=== PATIENT | female | born 1995 | race Caucasian/White ===

== ENCOUNTER 2016-11-28 05:54 | Inpatient (IN) | payer BC ==
[2016-11-28] MEDS ORDERED: Sodium Chloride 0.9% 10 ML Syringe FLUSH PRN (08:52)
[2016-11-28] MEDS ORDERED: Nalbuphine 10 MG/1 ML Vial IVPUSH PRN (08:52)
[2016-11-28] MEDS ORDERED: Lidocaine 1% 50 ML MDV INJECT PRN (08:52)
[2016-11-28] MEDS ORDERED: Butorphanol 1 MG/ML SDV IVPUSH PRN (08:52)
[2016-11-28] MEDS ORDERED: Misoprostol 200 MCG Tab PO PRN (08:52)
[2016-11-28] MEDS ORDERED: Water For Irrigation,Sterile 1,000 ML Container IRR PRN (08:52)
[2016-11-28] MEDS ORDERED: Sodium Chloride 0.9% 2.5 ML Syringe FLUSH PRN (08:52)
[2016-11-28] MEDS ORDERED: Carboprost Tromethamine 250 MCG/1 ML Amp IM PRN (08:52)
[2016-11-28] MEDS ORDERED: Methylergonovine 0.2 MG/1 ML Amp IM PRN (08:52)
[2016-11-28] MEDS ORDERED: Oxytocin/Lactated Ringers 30 UNIT/500 ML BAG IV SCH (09:00)
[2016-11-28] MEDS: Lactated Ringers 1,000 ML IV SCH ×3 (11:23→16:12)
[2016-11-28] MEDS ORDERED: Ropivacaine HCl/PF 100 ML ONE (11:50)
[2016-11-28] MEDS ORDERED: fentaNYL 100 MCG/2 ML SDV ONE (11:50)
[2016-11-28] MEDS ORDERED: ePHEDrine 50 MG/ML SDV ONE (11:50)
[2016-11-28] MEDS ORDERED: Ropivacaine 0.2% 2 MG/ML 20 ML SDV ONE (11:50)
--- NOTE | 2016-11-28 12:39 | PCM.PREANE ---
Preanesthetic Assessment - Procedure Proposed Procedure: labor epidural - Anesthesia/Transfusion/Family Hx Anesthesia History: Prior Anesthesia Without Reaction (colonoscopy) Family History of Anesthesia Reaction: No Transfusion History: No Prior Transfusion(s) - Review of Systems General: No Symptoms Pulmonary: No Symptoms Cardiovascular: No Symptoms Gastrointestinal: No symptoms Neurological: Other (history of rt side sciatic pain) Other: Reports: None - Physical Assessment NPO Status Date: 11/28/16 Height: 1.71 m Weight: 69.853 kg ASA Class: 2 Mental Status: Alert & Oriented x3 Airway Class: Mallampati = 1 Dentition: Reports: Normal Dentition Thyro-Mental Finger Breadths: 3 Mouth Opening Finger Breadths: 3 ROM/Head Extension: Full Lungs: Clear to auscultation Cardiovascular: Regular Rate - Lab Values: Laboratory Last Values WBC 8.86 K/uL (4.0-11.0) 11/28/16 09:08 RBC 4.55 M/uL (4.30-5.90) 11/28/16 09:08 Hgb 13.5 g/dL (12.0-16.0) 11/28/16 09:08 Hct 39.6 % (36.0-46.0) 11/28/16 09:08 MCV 87.0 fL (80.0-98.0) 11/28/16 09:08 MCH 29.7 pg (27.0-32.0) 11/28/16 09:08 MCHC 34.1 g/dL (31.0-37.0) 11/28/16 09:08 RDW Std Deviation 43.0 fl (28.0-62.0) 11/28/16 09:08 RDW Coeff of Lynn 14 % (11.0-15.0) 11/28/16 09:08 Plt Count 160 K/uL (150-400) 11/28/16 09:08 MPV 10.90 fL (7.40-12.00) 11/28/16 09:08 Nucleated RBC % 0.0 /100WBC 11/28/16 09:08 Nucleated RBCs # 0 K/uL 11/28/16 09:08 Blood Type O POSITIVE 11/28/16 09:08 Antibody Screen NEGATIVE 11/28/16 09:08 - Allergies Allergies/Adverse Reactions: Allergies Allergy/AdvReac Type Severity Reaction Status Date / Time No Known Allergies Allergy Verified 11/28/16 06:22 - Blood Blood Available: Yes Product(s) Available: PRBC - Anesthesia Plan Pre-Op Medication Ordered: Antacids - Acknowledgements Anesthesia Type Planned: Epidural Pt an Appropriate Candidate for the Planned Anesthesia: Yes Alternatives and Risks of Anesthesia Discussed w Pt/Guardian: Yes Pt/Guardian Understands and Agrees with Anesthesia Plan: Yes PreAnesthesia Questionnaire - Past Health History Medical/Surgical History: Denies Medical/Surgical History Gastrointestinal History: Reports: None [employer] History: Reports: - Infectious Disease History Infectious Disease History: Reports: Chicken pox, Other (see below) Other Infectious Disease History: Pneumonia - Past Surgical History Head Surgeries/Procedures: Reports: None GI Surgical History: Reports: Colonoscopy - CURRENT (IN HOUSE) MEDS Current Meds: Current Medications Butorphanol Tartrate (Stadol) 1 mg IVPUSH Q1H PRN PRN Reason: Pain Carboprost Tromethamine (Hemabate Ds) 250 mcg IM ASDIRECTED PRN PRN Reason: Post Hemorrhage Lactated Ringer's (Ringers, Lactated) 1,000 mls @ 150 mls/hr IV ASDIRECTED GEOFFREY Last Admin: 11/28/16 12:21 Dose: 500 mls/hr Lidocaine HCl (Xylocaine 1%) 50 ml INJECT .ONCE PRN PRN Reason: Laceration repair Methylergonovine Maleate (Methergine) 0.2 mg IM ASDIRECTED PRN PRN Reason: Post Hemorrhage Misoprostol (Cytotec) 200 mcg PO .ONCE PRN PRN Reason: Post Hemorrhage Sodium Chloride (Saline Flush) 10 ml FLUSH ASDIRECTED PRN PRN Reason: Keep Vein Open Sodium Chloride (Saline Flush) 2.5 ml FLUSH ASDIRECTED PRN PRN Reason: Keep Vein Open Sterile Water (Sterile Water For Irrigation) 1,000 ml IRR ASDIRECTED PRN PRN Reason: delivery Discontinued Medications Ephedrine Sulfate (Ephedrine Sulfate) Confirm Administered Dose 50 mg .ROUTE .STK-MED ONE Stop: 11/28/16 11:51 Fentanyl (Sublimaze) Confirm Administered Dose 300 mcg .ROUTE .STK-MED ONE Stop: 11/28/16 11:51 Oxytocin/Lactated Ringer's (Pitocin In Lr 30 Units/500 Ml) 30 unit in 500 mls @ 999 mls/hr IV TITRATE GEOFFREY; 999 MUNITS/MIN PRN Reason: Protocol Stop: 11/28/16 09:31 Ropivacaine (Naropin 0.2%) Confirm Administered Dose 100 mls @ as directed .ROUTE .STK-MED ONE Stop: 11/28/16 11:51 Nalbuphine HCl (Nubain) 10 mg IVPUSH Q1H PRN PRN Reason: Pain (severe 7-10) Stop: 11/28/16 10:53 Ropivacaine (Naropin 0.2%) Confirm Administered Dose 20 ml .ROUTE .STK-MED ONE Stop: 11/28/16 11:51 Preanesthetic Assessment - PHYSICAL ASSESSMENT Height: 1.71 m Weight: 69.853 kg - LAB Values: Laboratory Last Values WBC 8.86 K/uL (4.0-11.0) 11/28/16 09:08 RBC 4.55 M/uL (4.30-5.90) 11/28/16 09:08 Hgb 13.5 g/dL (12.0-16.0) 11/28/16 09:08 Hct 39.6 % (36.0-46.0) 11/28/16 09:08 MCV 87.0 fL (80.0-98.0) 11/28/16 09:08 MCH 29.7 pg (27.0-32.0) 11/28/16 09:08 MCHC 34.1 g/dL (31.0-37.0) 11/28/16 09:08 RDW Std Deviation 43.0 fl (28.0-62.0) 11/28/16 09:08 RDW Coeff of [place] 14 % (11.0-15.0) 11/28/16 09:08 Plt Count 160 K/uL (150-400) 11/28/16 09:08 MPV 10.90 fL (7.40-12.00) 11/28/16 09:08 Nucleated RBC % 0.0 /100WBC 11/28/16 09:08 Nucleated RBCs # 0 K/uL 11/28/16 09:08 Blood Type O POSITIVE 11/28/16 09:08 Antibody Screen NEGATIVE 11/28/16 09:08 - ALLERGIES Allergies/Adverse Reactions: Allergies Allergy/AdvReac Type Severity Reaction Status Date / Time No Known Allergies Allergy Verified 11/28/16 06:22
--- NOTE | 2016-11-28 12:51 | PCM.PRNOTE ---
- Free Text/Narrative Note: asked to see patient for increasing labor pain. patient cervix dilated to 8 cm. explained procedure including risks and expectations of nerve pain, nerve damage , bleeding, infection and unsuccessful or one sided epidural. patient agrees to proceed. sitting up, sterile betadine prep x 3 with sterile drape. 1% lidocaine sq at L3. #17 g touhy advanced. unable to advance more than a few millimeters without complaints of right or left sided pain. L4 local SQ #17 g touhy advanced without incident pcea explainedto aprroximately 7 cm. no heme, no paresthesia. catheter advanced easily taped 10 cm at skin. test dose 3 ml of 1.5 % lidocaine with epinephrine 1:200,000. negative reaction. bolus dose 5 ml 0.2% ropivicaine and 100 mcg fentanyl given. pain level 1/10 from 10. level t8 on left and t12 on right. pt tipped to right side. pcea drip started at 10 ml/hr with 4ml /20 minutes as a bolus option. fentany additive at 2 mcg /ml into ropivicaine drip. pcea explained to patient.
[2016-11-28] MEDS ORDERED: Citric Acid/Sodium Citrate Solution 30 ML Cup PO ONE (16:00)
[2016-11-28] MEDS ORDERED: Oxytocin/Lactated Ringers 30 UNIT/500 ML BAG ONE (17:50)
[2016-11-28] MEDS ORDERED: Acetaminophen 500 MG Tab PO PRN (18:51)
[2016-11-28] MEDS ORDERED: Witch Hazel Medicated Pads 40/Jar TOP PRN (18:51)
[2016-11-28] MEDS ORDERED: oxyCODONE 5 MG Tab PO PRN (18:51)
[2016-11-28] MEDS ORDERED: Bisacodyl 10 MG Supp RECTAL PRN (18:51)
[2016-11-28] MEDS ORDERED: Benzocaine/Menthol 20%-0.5% Spray 78 GM Cannister TOP PRN (18:51)
[2016-11-28] MEDS ORDERED: Lanolin 100% Cream 7 GM Tube TOP PRN (18:51)
[2016-11-28] MEDS ORDERED: Ibuprofen 400 MG Tab PO PRN (18:51)
[2016-11-28] MEDS: Ibuprofen 800 MG Tab PO PRN (20:02)
[2016-11-28] MEDS: Acetaminophen 500 MG Tab PO PRN (21:38)
--- NOTE | 2016-11-28 23:43 | OR ---
SURGEON: Sarai Pérez MD DATE OF PROCEDURE: 11/28/2016 PREOPERATIVE DIAGNOSES: 1. Term at 40 weeks 3 days. 2. Spontaneous labor. POSTOPERATIVE DIAGNOSES: 1. Term at 40 weeks 3 days. 2. Spontaneous labor. 3. Delivered. PROCEDURE: 1. Spontaneous vaginal delivery. 2. Repair of partial third-degree laceration (Type 3a). ANESTHESIA: Epidural. ESTIMATED BLOOD LOSS: 250 mL. COMPLICATIONS: None. DISPOSITION: Mother and baby stable in Labor and Delivery room, [facility]. FINDINGS: Male , weight 3860 g. score 8 and 9 at 1 and 5 minutes respectively. Nuchal cord x1. Grossly normal placenta with 3-vessel cord. Midline third-degree laceration involving less than 50% of the external sphincter. BRIEF HISTORY: The patient is a 21-year-old primi, who was admitted early hours of this morning at approximately 6:00 a.m. with history of regular contractions since 2:00 a.m. Denied vaginal bleeding, leakage of fluid and reported active fetus. care was uncomplicated. GBS negative. On admission, she was found to be 4 to 5 cm dilated, with a CAT 1 stripe, she was allowed to ambulate and she made progress to 6 cm 2 hours later. She continued to ambulate with intermittent monitoring.Artificial rupture of membranes was performed when she was 7 cm dilated, scanty amount of blood tinged fluid was noted, after which she requested and received epidural for pain management. She spontaneous progress to full dilatation and with increasing rectal pressure, she commenced active pushing. She pushed a little over 4 hours bringing the baby's head down to a +4 station and was set up for delivery in modified dorsal lithotomy position. The heart tracing was mainly category 1 throughout the first stage of labor and became a second stage strip, CAT 2 active second stage. DESCRIPTION OF PROCEDURE: She had a spontaneous vaginal delivery of a live male infant in direct occipital anterior position, clear amniotic fluid delivered, nuchal cord x1, which was easily reduced. Anterior and the posterior shoulders, and the rest of the baby were delivered without difficulty. The baby was vigorous and cried spontaneously at . The baby was delivered onto the maternal abdomen. The cord was double clamped after it had ceased pulsating and was cut by the father of the baby. With delivery of the , oxytocin infusion, titration was commenced for active management of third stage of labor. Cord blood and gas samples were obtained. The placenta was delivered by cord traction appeared to be complete and intact. Examination of the perineum revealed a third-degree laceration, type 3a involving less than 50% of the external sphincter. The edges of the external sphincter were then identified and repaired with end-to-end technique using 2-0 PDS suture. The rest of the laceration was then repaired with the routine technique using 2-0 Vicryl suture, nonlocking continuous stitches were used to approximate the vaginal wall and using the same suture, interrupted stitches were used to approximate the perineal muscles. Subcuticular stitches were used to repair the skin. Rectal exam post repair revealed intact sphincter with no stitches in the anus. Uterine massage was performed. The uterus was found to be well contracted below the umbilicus. The patient tolerated the procedure well. Sponge, needle, instrument, and needle counts were correct at the end of the delivery. ADUMVIV / MODL /[id number] MARK
[2016-11-29] MEDS: Ibuprofen 800 MG Tab PO PRN ×3 (04:52→19:50)
[2016-11-29] MEDS: Docusate Sodium 100 MG Cap PO PRN (09:20)
[2016-11-29] MEDS: Acetaminophen 500 MG Tab PO PRN (09:20)
--- NOTE | 2016-11-29 10:56 | PCM48HPAN ---
Post Anesthesia Note - EVALUATION WITHIN 48HRS OF ANESTHETIC Vital Signs in Normal Range: Yes Patient Participated in Evaluation: Yes Respiratory Function Stable: Yes Airway Patent: Yes Cardiovascular Function Stable: Yes Hydration Status Stable: Yes Pain Control Satisfactory: Yes Nausea and Vomiting Control Satisfactory: Yes Mental Status Recovered: Yes
[2016-11-29] MEDS ORDERED: Lidocaine 4% Top Soln 50 ML Bottle MUCMEM ONE (14:40)
[2016-11-29] MEDS ORDERED: Lidocaine 2% Jelly 30 ML Tube MUCMEM SCH (14:45)
--- NOTE | 2016-11-29 17:05 | PCM.PNPP ---
- General Info Date of Service: 11/29/16 Functional Status: Reports: pain controlled, tolerating diet, ambulating, urinating - Review of Systems General: Denies: Fever, Weakness, Fatigue, Malaise, Chills HEENT: Denies: headaches Pulmonary: Denies: shortness of breath, pleuritic chest pain, cough, sputum Cardiovascular: Denies: Chest Pain, Palpitations, Dyspnea on Exertion Gastrointestinal: Denies: Abdominal pain Genitourinary: Denies: dysuria, incontinence Psychiatric: Denies: confusion, depression, mood lability - General Info Date of Service: 11/29/16 - Patient Data Vital Signs - most recent: Last Vital Signs Temp 36.7 C 11/29/16 16:00 Pulse 85 11/29/16 16:00 Resp 14 11/29/16 16:00 BP 117/68 11/29/16 16:00 Pulse Ox 96 11/29/16 16:00 Weight - most recent: 154 lb Lab Results - last 24 hrs: Laboratory Results - last 24 hr 11/29/16 Range/Units 04:40 Hgb 11.6 L (12.0-16.0) g/dL Hct 34.1 L (36.0-46.0) % Med Orders - Current: Current Medications Acetaminophen (Tylenol Extra Strength) 500 mg PO Q4H PRN PRN Reason: Pain Acetaminophen (Tylenol Extra Strength) 1,000 mg PO Q4H PRN PRN Reason: Pain Last Admin: 11/29/16 09:20 Dose: 1,000 mg Benzocaine/Menthol (Dermoplast Pain Relief 20%-0.5% [place]) 78 gm TOP ASDIRECTED PRN PRN Reason: Perineal Comfort Measure Last Admin: 11/28/16 20:03 Dose: 78 gm Bisacodyl (Dulcolax) 10 mg RECTAL .ONCE PRN PRN Reason: Constipation Docusate Sodium (Colace) 100 mg PO BID PRN PRN Reason: Constipation Last Admin: 11/29/16 09:20 Dose: 100 mg Emollient Ointment (Lansinoh Hpa) 0 gm TOP ASDIRECTED PRN PRN Reason: Sore Nipples Ibuprofen (Motrin) 400 mg PO Q4H PRN PRN Reason: Pain Ibuprofen (Motrin) 800 mg PO Q6H PRN PRN Reason: Pain Last Admin: 11/29/16 13:47 Dose: 800 mg Lidocaine HCl (Xylocaine 2% Jelly) 30 ml MUCMEM ASDIRECTED GEOFFREY Last Admin: 11/29/16 14:48 Dose: 30 ml Oxycodone HCl (Oxycodone) 5 mg PO Q2H PRN PRN Reason: Pain Last Admin: 11/28/16 22:54 Dose: 5 mg Witch [place] (Tucks) 1 pad TOP ASDIRECTED PRN PRN Reason: comfort care Last Admin: 11/28/16 20:03 Dose: 1 pad Discontinued Medications Butorphanol Tartrate (Stadol) 1 mg IVPUSH Q1H PRN PRN Reason: Pain Carboprost Tromethamine (Hemabate Ds) 250 mcg IM ASDIRECTED PRN PRN Reason: Post Hemorrhage Citric Acid/Sodium Citrate (Bicitra Solution) 30 ml PO ONETIME ONE Stop: 11/28/16 16:01 Last Admin: 11/28/16 16:30 Dose: 30 ml Ephedrine Sulfate (Ephedrine Sulfate) Confirm Administered Dose 50 mg .ROUTE .STK-MED ONE Stop: 11/28/16 11:51 Fentanyl (Sublimaze) Confirm Administered Dose 300 mcg .ROUTE .STK-MED ONE Stop: 11/28/16 11:51 Lactated Ringer's (Ringers, Lactated) 1,000 mls @ 150 mls/hr IV ASDIRECTED GEOFFREY Last Admin: 11/28/16 16:12 Dose: 150 mls/hr Oxytocin/Lactated Ringer's (Pitocin In Lr 30 Units/500 Ml) 30 unit in 500 mls @ 999 mls/hr IV TITRATE GEOFFREY; 999 MUNITS/MIN PRN Reason: Protocol Stop: 11/28/16 09:31 Last Admin: 11/28/16 17:56 Dose: 999 munits/min, 999 mls/hr Ropivacaine (Naropin 0.2%) Confirm Administered Dose 100 mls @ as directed .ROUTE .STK-MED ONE Stop: 11/28/16 11:51 Oxytocin/Lactated Ringer's (Pitocin In Lr 30 Units/500 Ml) Confirm Administered Dose 30 unit in 500 mls @ as directed .ROUTE .STK-MED ONE Stop: 11/28/16 17:51 Lidocaine HCl (Xylocaine 1%) 50 ml INJECT .ONCE PRN PRN Reason: Laceration repair Lidocaine HCl (Xylocaine 4% Top Soln) 50 ml MUCMEM ONETIME ONE Stop: 11/29/16 14:41 Methylergonovine Maleate (Methergine) 0.2 mg IM ASDIRECTED PRN PRN Reason: Post Hemorrhage Misoprostol (Cytotec) 200 mcg PO .ONCE PRN PRN Reason: Post Hemorrhage Nalbuphine HCl (Nubain) 10 mg IVPUSH Q1H PRN PRN Reason: Pain (severe 7-10) Stop: 11/28/16 10:53 Ropivacaine (Naropin 0.2%) Confirm Administered Dose 20 ml .ROUTE .STK-MED ONE Stop: 11/28/16 11:51 Sodium Chloride (Saline Flush) 10 ml FLUSH ASDIRECTED PRN PRN Reason: Keep Vein Open Sodium Chloride (Saline Flush) 2.5 ml FLUSH ASDIRECTED PRN PRN Reason: Keep Vein Open Sterile Water (Sterile Water For Irrigation) 1,000 ml IRR ASDIRECTED PRN PRN Reason: delivery Last Admin: 11/28/16 17:56 Dose: 1,000 ml - Infant Interaction Disposition, : [place] in Room with Family Interaction: Holding Infant Feeding: Breastfed ; Nursed Well, Continues to Breastfeed Support Person: - Recovery Exam Fundal Tone: Firm Fundal Level: 1 Fingerbreadths Below Umbilicus Fundal Placement: Midline Lochia Amount: Small Lochia Color: Rubra/Red Perineum Description: Ecchymotic, Edematous Episiotomy/Laceration: Approximated Bladder Status: Nonpalpable Urinary Elimination: Voided - Exam General: alert, oriented Neck: supple Lungs: Clear to auscultation, Normal respiratory effort Cardiovascular: Regular Rate, Regular Rhythm Abdomen: bowel sounds present, soft, no tenderness, no distension Extremities: no edema, no calf tenderness Psy/Mental Status: alert, normal affect, normal mood - Problem List & Annotations (1) Vaginal delivery SNOMED Code(s): 098031662 Code(s): O80 - ENCOUNTER FOR FULL-TERM UNCOMPLICATED DELIVERY Status: Acute Current Visit: Yes (2) Third degree perineal laceration SNOMED Code(s): 63379107, 494439575 Code(s): O70.20 - THIRD DEGREE PERINEAL LACERATION DURING DELIVERY, UNSP Status: Acute Current Visit: Yes - Problem List Review Problem List Initiated/Reviewed/Updated: Yes - My Orders Last 24 Hours: My Active Orders 11/28/16 18:51 Patient Status [ADT] Routine May Shower [RC] ASDIRECTED Up ad Shira [RC] ASDIRECTED Vital Signs [RC] PER UNIT ROUTINE Acetaminophen [Tylenol Extra Strength] 1,000 mg PO Q4H PRN Acetaminophen [Tylenol Extra Strength] 500 mg PO Q4H PRN Benzocaine/Menthol [Dermoplast Pain Relief 20%-0.5% [place]] 78 gm TOP ASDIRECTED PRN Bisacodyl [Dulcolax] 10 mg RECTAL .ONCE PRN Docusate Sodium [Colace] 100 mg PO BID PRN Ibuprofen [Motrin] 400 mg PO Q4H PRN Ibuprofen [Motrin] 800 mg PO Q6H PRN Lanolin [Lansinoh HPA] See Dose Instructions TOP ASDIRECTED PRN [place] [Tucks] 1 pad TOP ASDIRECTED PRN oxyCODONE 5 mg PO Q2H PRN Assess Lochia [WOMSER] Per Unit Routine Assess Uterine Involution [WOMSER] Per Unit Routine Breast Pump [WOMSER] Per Unit Routine Nothing Per Rectum [WOMSER] Per Unit Routine Perineal Care [OM.PC] Per Unit Routine Peripheral IV Discontinue [OM.PC] Routine Resuscitation Status Routine 11/29/16 14:45 Lidocaine 2% [Xylocaine 2% Jelly] 30 ml MUCMEM ASDIRECTED 11/29/16 Breakfast Regular Diet [DIET] - Assessment Assessment:: PPD#1 s/p with 3 rd degree laceration, minimal lochia, perineum less swollen and pain well controlled, stable and afebrile - Plan Plan:: Continue current care. Aim for discharge tomorrow
[2016-11-30] MEDS: Ibuprofen 800 MG Tab PO PRN (06:18)
[2016-11-30] MEDS: Docusate Sodium 100 MG Cap PO PRN (06:21)
[2016-11-30 08:11] VITALS: BP 104/68
--- NOTE | 2016-11-30 10:17 | PCM.PNPP ---
- General Info Date of Service: 11/30/16 Functional Status: Reports: pain controlled, tolerating diet, ambulating, urinating - Review of Systems General: Denies: Fever, Weakness, Fatigue, Malaise, Chills HEENT: Denies: headaches Pulmonary: Denies: shortness of breath, pleuritic chest pain, cough Cardiovascular: Denies: Chest Pain, Palpitations, Dyspnea on Exertion Gastrointestinal: Denies: Abdominal pain Genitourinary: Reports: incontinence (At the end of voiding). Denies: dysuria, burning Psychiatric: Denies: depression, mood lability, anxiety - General Info Date of Service: 11/30/16 - Patient Data Vital Signs - most recent: Last Vital Signs Temp 37.1 C 11/30/16 08:00 Pulse 80 11/30/16 08:00 Resp 18 11/30/16 08:00 BP 104/68 11/30/16 08:00 Pulse Ox 97 11/30/16 05:35 Weight - most recent: 154 lb Med Orders - Current: Current Medications Acetaminophen (Tylenol Extra Strength) 500 mg PO Q4H PRN PRN Reason: Pain Acetaminophen (Tylenol Extra Strength) 1,000 mg PO Q4H PRN PRN Reason: Pain Last Admin: 11/29/16 09:20 Dose: 1,000 mg Benzocaine/Menthol (Dermoplast Pain Relief 20%-0.5% [place]) 78 gm TOP ASDIRECTED PRN PRN Reason: Perineal Comfort Measure Last Admin: 11/28/16 20:03 Dose: 78 gm Bisacodyl (Dulcolax) 10 mg RECTAL .ONCE PRN PRN Reason: Constipation Docusate Sodium (Colace) 100 mg PO BID PRN PRN Reason: Constipation Last Admin: 11/30/16 06:21 Dose: 100 mg Emollient Ointment (Lansinoh Hpa) 0 gm TOP ASDIRECTED PRN PRN Reason: Sore Nipples Ibuprofen (Motrin) 400 mg PO Q4H PRN PRN Reason: Pain Ibuprofen (Motrin) 800 mg PO Q6H PRN PRN Reason: Pain Last Admin: 11/30/16 06:18 Dose: 800 mg Lidocaine HCl (Xylocaine 2% Jelly) 30 ml MUCMEM ASDIRECTED GEOFFREY Last Admin: 11/29/16 14:48 Dose: 30 ml Oxycodone HCl (Oxycodone) 5 mg PO Q2H PRN PRN Reason: Pain Last Admin: 11/28/16 22:54 Dose: 5 mg [place] (Tucks) 1 pad TOP ASDIRECTED PRN PRN Reason: comfort care Last Admin: 11/28/16 20:03 Dose: 1 pad Discontinued Medications Butorphanol Tartrate (Stadol) 1 mg IVPUSH Q1H PRN PRN Reason: Pain Carboprost Tromethamine (Hemabate Ds) 250 mcg IM ASDIRECTED PRN PRN Reason: Post Hemorrhage Citric Acid/Sodium Citrate (Bicitra Solution) 30 ml PO ONETIME ONE Stop: 11/28/16 16:01 Last Admin: 11/28/16 16:30 Dose: 30 ml Ephedrine Sulfate (Ephedrine Sulfate) Confirm Administered Dose 50 mg .ROUTE .STK-MED ONE Stop: 11/28/16 11:51 Fentanyl (Sublimaze) Confirm Administered Dose 300 mcg .ROUTE .STK-MED ONE Stop: 11/28/16 11:51 Lactated Ringer's (Ringers, Lactated) 1,000 mls @ 150 mls/hr IV ASDIRECTED GEOFFREY Last Admin: 11/28/16 16:12 Dose: 150 mls/hr Oxytocin/Lactated Ringer's (Pitocin In Lr 30 Units/500 Ml) 30 unit in 500 mls @ 999 mls/hr IV TITRATE GEOFFREY; 999 MUNITS/MIN PRN Reason: Protocol Stop: 11/28/16 09:31 Last Admin: 11/28/16 17:56 Dose: 999 munits/min, 999 mls/hr Ropivacaine (Naropin 0.2%) Confirm Administered Dose 100 mls @ as directed .ROUTE .STK-MED ONE Stop: 11/28/16 11:51 Oxytocin/Lactated Ringer's (Pitocin In Lr 30 Units/500 Ml) Confirm Administered Dose 30 unit in 500 mls @ as directed .ROUTE .STK-MED ONE Stop: 11/28/16 17:51 Lidocaine HCl (Xylocaine 1%) 50 ml INJECT .ONCE PRN PRN Reason: Laceration repair Lidocaine HCl (Xylocaine 4% Top Soln) 50 ml MUCMEM ONETIME ONE Stop: 11/29/16 14:41 Methylergonovine Maleate (Methergine) 0.2 mg IM ASDIRECTED PRN PRN Reason: Post Hemorrhage Misoprostol (Cytotec) 200 mcg PO .ONCE PRN PRN Reason: Post Hemorrhage Nalbuphine HCl (Nubain) 10 mg IVPUSH Q1H PRN PRN Reason: Pain (severe 7-10) Stop: 11/28/16 10:53 Ropivacaine (Naropin 0.2%) Confirm Administered Dose 20 ml .ROUTE .K-MED ONE Stop: 11/28/16 11:51 Sodium Chloride (Saline Flush) 10 ml FLUSH ASDIRECTED PRN PRN Reason: Keep Vein Open Sodium Chloride (Saline Flush) 2.5 ml FLUSH ASDIRECTED PRN PRN Reason: Keep Vein Open Sterile Water (Sterile Water For Irrigation) 1,000 ml IRR ASDIRECTED PRN PRN Reason: delivery Last Admin: 11/28/16 17:56 Dose: 1,000 ml - Interaction Infant Disposition, : in Room with Family Infant Interaction: Holding Infant Infant Feeding: Breastfed Infant; Nursed Well, Continues to Breastfeed Support Person: - Recovery Exam Fundal Tone: Firm Fundal Level: 3 Fingerbreadths Below Umbilicus Fundal Placement: Midline Lochia Amount: Scant Lochia Color: Rubra/Red Perineum Description: Other (see below) Other Perinuem Description: no edema noted at this time Episiotomy/Laceration: Approximated Bladder Status: Voiding Urinary Elimination: Incontinent, Other (see below) Other Urinary Elimination, : some incontinence at the end of voiding - Exam General: alert, oriented HEENT: Pupils equal Lungs: Clear to auscultation, Normal respiratory effort Cardiovascular: Regular Rate, Regular Rhythm Abdomen: soft, no tenderness, no distension Extremities: no calf tenderness, edema Skin: warm Psy/Mental Status: alert, normal affect, normal mood - Problem List & Annotations (1) Vaginal delivery SNOMED Code(s): 789000920 Code(s): O80 - ENCOUNTER FOR FULL-TERM UNCOMPLICATED DELIVERY Status: Acute Current Visit: Yes (2) Third degree perineal laceration SNOMED Code(s): 71582263, 350794144 Code(s): O70.20 - THIRD DEGREE PERINEAL LACERATION DURING DELIVERY, UNSP Status: Acute Current Visit: Yes - Problem List Review Problem List Initiated/Reviewed/Updated: Yes - My Orders Last 24 Hours: My Active Orders 11/29/16 14:45 Lidocaine 2% [Xylocaine 2% Jelly] 30 ml MUCMEM ASDIRECTED - Assessment Assessment:: PPD#2 s/p with 3 rd degree laceration, minimal lochia, stable and afebrile - Plan Plan:: Discharge instructions reviewed Perineal care reviewed: avoidance of constipation, Kegel exercises Bleeding and infection precautions discussed Nothing in the vagina for 6 weeks OTC pain meds. Continue PNV Follow up in 6 weeks in the clinic
== END 2016-11-30 11:45 | disposition home or self-care (01) | DRG 542 ==
LOC: MW.OBCHECK 05:54 → MW.OB 05:56 → MW.OBCHECK 08:46 → MW.OB 08:46 → OBSVTOIN 17:56 → MW.OB 22:29
PROVIDERS: ADMIT Obstetrics & Gynecology; ATTEND Obstetrics & Gynecology
PROC: 10E0XZZ Delivery of Products of Conception, External Approach (ICD-10-PCS; principal; 2016-11-28)
PROC: 0DQR0ZZ Repair Anal Sphincter, Open Approach (ICD-10-PCS; 2016-11-28)
PROC: 10907ZC Drainage of Amniotic Fluid, Therapeutic from Products of Conception, Via Natural or Artificial Opening (ICD-10-PCS; 2016-11-28)
DX: O70.20 Third degree perineal laceration during delivery, unspecified (principal); Z3A.40 40 weeks gestation of pregnancy; Z37.0 Single live birth
CPT/HCPCS: 01967; 36415; 59025; 85014; 85018; 85027; 86850; 86900; 86901; A9270-GY; J7120

== ENCOUNTER 2017-10-23 07:46 | Emergency (ER) | payer BC ==
[2017-10-23] MEDS ORDERED: Doxycycline 100 MG in Sodium Chloride 0.9% 100 ML IV ONE (08:23)
[2017-10-23] MEDS ORDERED: Ketorolac 30 MG/ML SDV IVPUSH ONE (08:23)
[2017-10-23] MEDS ORDERED: Ampicillin/Sulbactam Na 3 GM in Sodium Chloride 0.9% 100 ML IV ONE (08:24)
[2017-10-23] MEDS ORDERED: Methylergonovine 0.2 MG/1 ML Amp IM ONE (08:25)
[2017-10-23] MEDS ORDERED: Sodium Chloride 0.9% 1,000 ML IV ONE (08:35)
--- NOTE | 2017-10-23 09:48 | EDM.PDOC ---
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 Patient opted for medical management. 800mcg of cytotec was placed in posterior fornix by Dr Baird . she called answering service intially complaining of dizzness and passed of products of conception. she however stated that she was still bleeding and was using about 1 - 2pad in an hout. Patient was told to observe and call back if still continous . patient states she had a fainting episode at home and was then taken to [facility] by her . 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: - Infectious Disease History Infectious Disease History: Reports: Chicken Pox, Other (See Below) Other Infectious Disease History: Pneumonia - Past Surgical History Head Surgeries/Procedures: Reports: None GI Surgical History: Reports: Colonoscopy Social & Family History - Family History Cardiac: Reports: High Cholesterol, Hypertension, [place] OBGYN: Reports: Endocrine/Metabolic: Reports: Diabetes, type II Oncologic: Reports: Lung, Ovarian, Prostate - Tobacco Use Smoking Status *Q: Never Smoker Second Hand Smoke Exposure: No - Caffeine Use Caffeine Use: Reports: None - Recreational Drug Use Recreational Drug Use: No ED ROS GENERAL - Review of Systems Review Of Systems: See Below Constitutional: Reports: No Symptoms HEENT: Reports: No Symptoms Respiratory: Reports: No Symptoms Cardiovascular: Reports: No Symptoms Endocrine: Reports: No Symptoms GI/Abdominal: Reports: No Symptoms : Reports: Other (Heavy bleeding ) Musculoskeletal: Reports: No Symptoms Skin: Reports: No Symptoms Neurological: Reports: No Symptoms Psychiatric: Reports: No Symptoms Hematologic/Lymphatic: Reports: No Symptoms, Other Immunologic: Reports: No Symptoms ED EXAM - Physical Exam Exam: See Below General Appearance: Alert Head: Normocephalic Respiratory/Chest: Lungs Clear, Normal Breath Sounds Cardiovascular: Regular Rate, Rhythm GI/Abdominal Exam: Normal Bowel Sounds (Female) Exam: Other (EUA - 9week sized uterus , Speculum - large amount of clots and blood seen in vagina , cervix is opened with product of conception noted at the os ) Extremities: Normal Inspection Neurological: Alert Psychiatric: Normal Affect Comments: Patient had examination done with POC seen at the cervical os ,it was removed from the os. Bleeding was reduced ,after removal of POC from the os. Unasyn given, IM methergine 0.2mg , and will follow CBC Course - Vital Signs Last Recorded V/S: Last Vital Signs Temp 37.3 C 10/23/17 08:00 Pulse 93 10/23/17 09:38 Resp 16 10/23/17 09:38 BP 108/51 L 10/23/17 09:38 Pulse Ox 100 10/23/17 09:38 - Orders/Labs/Meds Orders: Active Orders 24 hr Category Date Time Status Sodium Chloride 0.9% [Normal Saline] 1,000 ml Med 10/23/17 08:35 Active IV .Bolus Medication Orders Sodium Chloride (Normal Saline) 1,000 mls @ 125 mls/hr IV .Bolus ONE Stop: 10/23/17 16:34 Last Admin: 10/23/17 09:02 Dose: 125 mls/hr Labs: Laboratory Tests 10/23/17 Range/Units 08:30 WBC 8.68 (4.0-11.0) K/uL RBC 3.22 L (4.30-5.90) M/uL Hgb 9.4 L (12.0-16.0) g/dL Hct 27.7 L (36.0-46.0) % MCV 86.0 (80.0-98.0) fL MCH 29.2 (27.0-32.0) pg MCHC 33.9 (31.0-37.0) g/dL RDW Std Deviation 41.1 (28.0-62.0) fl RDW Coeff of Lynn 13 (11.0-15.0) % Plt Count 183 (150-400) K/uL MPV 8.90 (7.40-12.00) fL Neut % (Auto) 83.8 H (48.0-80.0) % Lymph % (Auto) 10.3 L (16.0-40.0) % [place] % (Auto) 5.6 (0.0-15.0) % Eos % (Auto) 0.2 (0.0-7.0) % Baso % (Auto) 0.1 (0.0-1.5) % Neut # (Auto) 7.3 H (1.4-5.7) K/uL Lymph # (Auto) 0.9 (0.6-2.4) K/uL [place] # (Auto) 0.5 (0.0-0.8) K/uL Eos # (Auto) 0.0 (0.0-0.7) K/uL Baso # (Auto) 0.0 (0.0-0.1) K/uL Nucleated RBC % 0.0 /100WBC Nucleated RBCs # 0 K/uL Meds: Medications Generic Name Dose Route Start Last Admin Trade Name Freq PRN Reason Stop Dose Admin Sodium Chloride 1,000 mls @ 125 mls/hr 10/23/17 08:35 10/23/17 09:02 Normal Saline IV 10/23/17 16:34 125 mls/hr .Bolus ONE Administration Discontinued Medications Generic Name Dose Route Start Last Admin Trade Name Freq PRN Reason Stop Dose Admin Ampicillin Sodium/Sulbactam 100 mls @ 200 mls/hr 10/23/17 08:24 10/23/17 09: 01 Sodium 3 gm/ Sodium Chloride IV 10/23/17 08:53 200 mls/hr ONETIME ONE Administration Ketorolac Tromethamine 30 mg 10/23/17 08:23 Toradol IVPUSH 10/23/17 08:24 ONETIME ONE Methylergonovine Maleate 0.2 mg 10/23/17 08:25 10/23/17 08:55 Methergine IM 10/23/17 08:26 0.2 mg STAT ONE Administration Departure - Departure Time of Disposition: 13:00 Disposition: Home, Self-Care 01 Condition: Good Clinical Impression: Incomplete - Discharge Information Referrals: [facility] [Outside] PCP,None [Primary Care Provider] - Forms: ED Department Discharge - Problem List & Annotations (1) Incomplete SNOMED Code(s): 394772886 Code(s): O03.4 - INCOMPLETE SPONTANEOUS WITHOUT COMPLICATION Status: Acute Current Visit: Yes - Problem List Review Problem List Initiated/Reviewed/Updated: Yes - My Orders Last 24 Hours: My Active Orders 10/23/17 08:35 Sodium Chloride 0.9% [Normal Saline] 1,000 ml IV .Bolus - Assessment/Plan Last 24 Hours: My Active Orders 10/23/17 08:35 Sodium Chloride 0.9% [Normal Saline] 1,000 ml IV .Bolus Assessment:: 22 yo P1 with incomplete s/p medical management ( cytotec placement) of missed at 9 weeks stable Plan Observe vital signs Pad counts Will d/c home if stable
[2017-10-23 16:45] VITALS: BP 104/61
--- NOTE | 2017-10-25 05:59 | US ---
EXAM DATE: 10/23/17 PATIENT'S AGE: 22 Patient: ANJU JEFFRIES Facility: [place], [place] Site . Site : [id number] Study: US OB Pelvis -10/23/2017 12:36:03 PM Ordering Physician: Kay Cha Final Report: INDICATION: 22 year-old female. The patient reportedly chest miscarried just prior to this examination. Followup. TECHNIQUE: Transvaginal pelvic ultrasound. FINDINGS: The endometrium is thickened and the endometrial canal distended measuring 4.5 cm. It is uncertain if this measurement reflects the endometrial stripe or merely a distended endometrial canal. This may reflect blood products. Blood flow was not confidently visualized within most of this. Retained products of conception could not be entirely excluded. Therefore a short interval followup ultrasound is recommended within 3-5 days or sooner depending on the clinical picture. The right ovary measures 2.9 x 1.4 x 2.1 cm. The left ovary measures 3.6 x 1.1 x 2.1 cm. No adnexal mass. No free fluid identified in the cul-de-sac. No adnexal mass. IMPRESSION: The endometrial canal appears to be distended likely by a combination of blood and endometrial tissue. The measurement of 4.5 centimeters could simply reflect the distended endometrial canal but there is likely endometrial thickening as well. Despite the lack of significant blood flow within this process, products of conception could not be entirely excluded particularly given the fact that the patient just had a miscarriage prior to this examination. Clinical and laboratory correlation are recommended. Short interval followup ultrasound recommended within 3-5 days to assess for resolution of these findings. The should be performed sooner if the patient`s symptoms warrant this. Dictated by Mati Isabel MD @ Oct 23 2017 1:13PM (Electronic Signature) Report Signed by Proxy. MARK
== END 2017-10-23 13:25 | disposition home or self-care (01) ==
LOC: MW.ED 07:46
DX: O03.9 Complete or unspecified spontaneous abortion without complication (principal); O02.1 Missed abortion
CPT/HCPCS: 36415; 76830; 85025; 96361; 96365; 96372; 99285; J0295; J2210; J7030; J7040; 88305; 99283

== ENCOUNTER 2017-10-25 15:42 | Day surgery (SDC) | payer BC ==
[2017-10-25] MEDS ORDERED: Ondansetron 4 MG/2 ML SDV ONE (15:44)
[2017-10-25] MEDS ORDERED: fentaNYL 100 MCG/2 ML SDV ONE ×2 (15:44→17:30)
[2017-10-25] MEDS ORDERED: Lidocaine 2% 5 ML SDV ONE (15:44)
[2017-10-25] MEDS ORDERED: Propofol 200 MG/20 ML SDV ONE (15:44)
[2017-10-25] MEDS ORDERED: Midazolam 1 MG/ML 2 ML SDV ONE (15:44)
[2017-10-25] MEDS ORDERED: fentaNYL 100 MCG/2 ML SDV IVPUSH PRN (16:41)
[2017-10-25] MEDS ORDERED: Sodium Chloride 0.9% 2.5 ML Syringe FLUSH PRN (16:41)
[2017-10-25] MEDS ORDERED: Sodium Chloride 0.9% 10 ML Syringe FLUSH PRN (16:41)
[2017-10-25] MEDS ORDERED: Lactated Ringers 1,000 ML IV SCH (16:45)
[2017-10-25] MEDS ORDERED: Sodium Chloride 0.9% 20 ML ONE (17:28)
[2017-10-25] MEDS ORDERED: ceFAZolin 1 GM Vial ONE (17:28)
[2017-10-25] MEDS ORDERED: Rocuronium 10 MG/ML 10 ML Syringe ONE (17:29)
[2017-10-25] MEDS ORDERED: Succinylcholine/Normal Saline 200 MG/10 ML Syringe ONE (17:29)
[2017-10-25] MEDS ORDERED: ePHEDrine 50 MG/ML SDV ONE (17:33)
--- NOTE | 2017-10-25 17:47 | PCM.OPNOTE ---
- General Post-Op/Procedure Note Date of Surgery/Procedure: 10/25/17 Operative Procedure(s): Suction dilatation and curettage Findings: uterus retroverted, boggy 9 week size preop with posterior palpable fibroid, postop, firm retroverted 8 week size Pre Op Diagnosis: incomplete with hemorrhage Post-Op Diagnosis: Same Anesthesia Technique: General ET Tube Primary Surgeon: Jenny Baird Anesthesia Provider: Jefferson Leger Pathology: products of conception EBL in mLs: 20 Complications: None Known
[2017-10-25] MEDS ORDERED: Ketorolac 30 MG/ML SDV ONE (17:52)
--- NOTE | 2017-10-25 18:09 | PCM.PREANE ---
Preanesthetic Assessment - Anesthesia/Transfusion/Family Hx Anesthesia History: No Prior Anesthesia Transfusion History: No Prior Transfusion(s) - Review of Systems General: No Symptoms Pulmonary: No Symptoms Cardiovascular: No Symptoms Gastrointestinal: No Symptoms Neurological: No Symptoms Other: Reports: None - Physical Assessment NPO Status Date: 10/25/17 NPO Status Time: 13:00 O2 Sat by Pulse Oximetry: 100 Respiratory Rate: 15 Vital Signs: Last Vital Signs Temp 98.2 F 10/25/17 17:48 Pulse 85 10/25/17 18:02 Resp 15 10/25/17 18:02 BP 123/69 10/25/17 18:02 Pulse Ox 100 10/25/17 18:02 Height: 5 ft 7 in Weight: 55.792 kg ASA Class: 2E Airway Class: Mallampati = 2 Dentition: Reports: Normal Dentition Thyro-Mental Finger Breadths: 3 Mouth Opening Finger Breadths: 3 ROM/Head Extension: Full Lungs: Clear to Auscultation, Normal Respiratory Effort Cardiovascular: Regular Rate, Regular Rhythm - Lab Values: Laboratory Last Values WBC 8.97 K/uL (4.0-11.0) 10/25/17 16:53 RBC 2.72 M/uL (4.30-5.90) L 10/25/17 16:53 Hgb 8.0 g/dL (12.0-16.0) L 10/25/17 16:53 Hct 23.7 % (36.0-46.0) L 10/25/17 16:53 MCV 87.1 fL (80.0-98.0) 10/25/17 16:53 MCH 29.4 pg (27.0-32.0) 10/25/17 16:53 MCHC 33.8 g/dL (31.0-37.0) 10/25/17 16:53 RDW Std Deviation 43.0 fl (28.0-62.0) 10/25/17 16:53 RDW Coeff of Lynn 13 % (11.0-15.0) 10/25/17 16:53 Plt Count 203 K/uL (150-400) 10/25/17 16:53 MPV 9.00 fL (7.40-12.00) 10/25/17 16:53 Neut % (Auto) 68.3 % (48.0-80.0) 10/25/17 16:53 Lymph % (Auto) 21.1 % (16.0-40.0) 10/25/17 16:53 [place] % (Auto) 6.4 % (0.0-15.0) 10/25/17 16:53 Eos % (Auto) 3.9 % (0.0-7.0) 10/25/17 16:53 Baso % (Auto) 0.3 % (0.0-1.5) 10/25/17 16:53 Neut # (Auto) 6.1 K/uL (1.4-5.7) H 10/25/17 16:53 Lymph # (Auto) 1.9 K/uL (0.6-2.4) 10/25/17 16:53 [place] # (Auto) 0.6 K/uL (0.0-0.8) 10/25/17 16:53 Eos # (Auto) 0.4 K/uL (0.0-0.7) 10/25/17 16:53 Baso # (Auto) 0.0 K/uL (0.0-0.1) 10/25/17 16:53 Nucleated RBC % 0.0 /100WBC 10/25/17 16:53 Nucleated RBCs # 0 K/uL 10/25/17 16:53 - Allergies Allergies/Adverse Reactions: Allergies Allergy/AdvReac Type Severity Reaction Status Date / Time No Known Allergies Allergy Verified 10/25/17 15:09 - Acknowledgements Anesthesia Type Planned: General Anesthesia Pt an Appropriate Candidate for the Planned Anesthesia: Yes Alternatives and Risks of Anesthesia Discussed w Pt/Guardian: Yes Pt/Guardian Understands and Agrees with Anesthesia Plan: Yes PreAnesthesia Questionnaire - Past Health History Medical/Surgical History: Denies Medical/Surgical History HEENT History: Reports: None Cardiovascular History: Reports: None Respiratory History: Reports: None Gastrointestinal History: Reports: Other (See Below) Other Gastrointestinal History: had colonoscopy before Genitourinary History: Reports: None 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: , Spontaneous : 1 Para: 0 Musculoskeletal History: Reports: None Neurological History: Reports: None Psychiatric History: Reports: None Hematologic History: Reports: Anemia Dermatologic History: Reports: Psoriasis - Infectious Disease History Infectious Disease History: Reports: Chicken Pox, Other (See Below) Other Infectious Disease History: Pneumonia - Past Surgical History Head Surgeries/Procedures: Reports: None GI Surgical History: Reports: Colonoscopy - SUBSTANCE USE Smoking Status *Q: Former Smoker Tobacco Use Within Last Twelve Months: No Second Hand Smoke Exposure: No Recreational Drug Use History: No - HOME MEDS Home Medications: Home Meds Methylergonovine Maleate [Methergine] 0.2 mg PO .Q6H PRN #4 tablet 10/25/17 [Rx] - CURRENT (IN HOUSE) MEDS Current Meds: Current Medications Fentanyl (Sublimaze) 50 mcg IVPUSH Q5M PRN PRN Reason: Pain (severe 7-10) Stop: 10/26/17 16:43 Lactated Ringer's (Ringers, Lactated) 1,000 mls @ 125 mls/hr IV ASDIRECTED GEOFFREY Last Admin: 10/25/17 16:59 Dose: 125 mls/hr Sodium Chloride (Saline Flush) 10 ml FLUSH ASDIRECTED PRN PRN Reason: Keep Vein Open Sodium Chloride (Saline Flush) 2.5 ml FLUSH ASDIRECTED PRN PRN Reason: Keep Vein Open Discontinued Medications Cefazolin Sodium (Ancef) Confirm Administered Dose 1 gm .ROUTE .STK-MED ONE Stop: 10/25/17 17:29 Ephedrine Sulfate (Ephedrine Sulfate) Confirm Administered Dose 50 mg .ROUTE .STK-MED ONE Stop: 10/25/17 17:34 Fentanyl (Sublimaze) Confirm Administered Dose 100 mcg .ROUTE .STK-MED ONE Stop: 10/25/17 15:45 Fentanyl (Sublimaze) Confirm Administered Dose 100 mcg .ROUTE .STK-MED ONE Stop: 10/25/17 17:31 Sodium Chloride (Normal Saline) Confirm Administered Dose 20 mls @ as directed .ROUTE .STK-MED ONE Stop: 10/25/17 17:29 Ketorolac Tromethamine (Toradol) Confirm Administered Dose 30 mg .ROUTE .STK- MED ONE Stop: 10/25/17 17:53 Lidocaine (Xylocaine-Mpf 2%) Confirm Administered Dose 5 ml .ROUTE .STK-MED ONE Stop: 10/25/17 15:45 Midazolam HCl (Versed 1 Mg/Ml) Confirm Administered Dose 2 mg .ROUTE .STK-MED ONE Stop: 10/25/17 15:45 Ondansetron HCl (Zofran) Confirm Administered Dose 4 mg .ROUTE .STK-MED ONE Stop: 10/25/17 15:45 Propofol (Diprivan 20 Ml) Confirm Administered Dose 200 mg .ROUTE .STK-MED ONE Stop: 10/25/17 15:45 Rocuronium [place]ley (Zemuron) Confirm Administered Dose 100 mg .ROUTE .STK-MED ONE Stop: 10/25/17 17:30 Succinylcholine Chloride (Succinylcholine In Ns Pf) Confirm Administered Dose 200 mg .ROUTE .STK-MED ONE Stop: 10/25/17 17:30
--- NOTE | 2017-10-25 18:10 | PCM.POSTAN ---
POST ANESTHESIA ASSESSMENT - MENTAL STATUS Mental Status: Alert, Oriented - RESPIRATORY Respiratory Status: Respiratory Rate WNL, Airway Patent, O2 Saturation Stable - CARDIOVASCULAR CV Status: Pulse Rate WNL, Blood Pressure Stable - GASTROINTESTINAL GI Status: No Symptoms - POST OP HYDRATION Hydration Status: Adequate & Stable
--- NOTE | 2017-10-25 18:26 | PCM48HPAN ---
Post Anesthesia Note - EVALUATION WITHIN 48HRS OF ANESTHETIC Vital Signs in Normal Range: Yes Patient Participated in Evaluation: Yes Respiratory Function Stable: Yes Airway Patent: Yes Cardiovascular Function Stable: Yes Hydration Status Stable: Yes Pain Control Satisfactory: Yes Nausea and Vomiting Control Satisfactory: Yes Mental Status Recovered: Yes Resp Rate: 15
[2017-10-25 19:23] VITALS: BP 119/62
--- NOTE | 2017-10-25 23:52 | OR ---
SURGEON: Jenny Baird M.D. DATE OF PROCEDURE: 10/25/2017 PREOPERATIVE DIAGNOSIS: Incomplete miscarriage. POSTOPERATIVE DIAGNOSIS: Incomplete miscarriage. PROCEDURE: Suction, dilatation, and curettage. ANESTHESIA: General endotracheal. FLUID: 800 mL. ESTIMATED BLOOD LOSS: 20 mL. FINDINGS: Preoperatively, uterus was retroverted, boggy, 9- to 10-week size with a palpable fibroid posteriorly. Postoperatively, the uterus was firm, 8-week size, retroverted. COMPLICATIONS: None known. DISPOSITION: Stable to recovery. PATHOLOGY SPECIMEN: Products of conception. BRIEF HISTORY: This is a 22-year-old female, G2, P1-0-0-1. She presented for routine OB visit at 11 weeks' gestation and was found to have a 9-week intrauterine demise. She chose to proceed with Cytotec, which was placed 3 days ago vaginally. Within 12 hours of placement, she had passed the fetus and subsequently began to have extremely heavy bleeding. She was brought to the emergency room by ambulance as she felt that she would faint, and at that time, products of conception were seen at the os and were removed. Subsequently, she has had minimal bleeding. She presents for followup in clinic today. Followup ultrasound showed 2.4 cm thickness of the endometrium with some vascular flow; therefore, I did recommend proceeding with a suction dilatation and curettage to confirm that all of the products of conception were removed with risks discussed including bleeding, infection, injury to bowel, bladder, blood vessels, ureters, and other organs, risk of thromboembolic event, and risk of anesthesia, risk of uterine perforation and risk of Asherman syndrome. Understanding all these risks, she does desire to proceed. She has been on Augmentin orally and received Ancef 1 g IV preoperatively. SCDs were in place. Bladder had been drained with Red Jose catheter. DESCRIPTION OF PROCEDURE: With the patient in dorsal lithotomy position under adequate general endotracheal anesthesia, the perineum and vagina were prepped with Betadine and draped in the usual fashion for vaginal surgery. An appropriate time-out was held. Bimanual examination was performed with findings as noted above. The speculum was placed in the vagina. The cervix was already accepting a 12 mm Hegar dilator; therefore, 12 mm straight suction curette was placed to the uterine fundus, which had been sounded to 10 cm. The 12 straight suction curette was placed to the uterine fundus, and on the first pass, a moderate-to- large amount of tissue was obtained. Subsequently, there were minimal tissue and minimal bleeding. Sharp curettage at 12, 3, 6, and 9 o'clock position revealed a good uterine cry. One followup pass was taken with the suction curette with no additional tissue obtained. Therefore, the instruments were removed from the vagina. There was no active vaginal bleeding. Bimanual examination revealed a firm retroverted 8-week size uterus with no active bleeding. Final sponge, needle, and instrument counts were reported as correct. There were no known complications. The patient was transferred to recovery in good condition. CANDI AWAD /[id number]
== END 2017-10-25 19:42 | disposition home or self-care (01) ==
LOC: MW.SDS 15:42 → MW.MS 15:50 → MW.ICU 16:22 → MW.SDS 19:42
PROVIDERS: ATTEND Obstetrics & Gynecology
DX: O03.4 Incomplete spontaneous abortion without complication (principal); Z79.899 Other long term (current) drug therapy; Z87.891 Personal history of nicotine dependence
CPT/HCPCS: 36415; 59812; 85025; J0690; J1885; J2250; J2405; J3010; J7120; 01965; 88305; J2704